=== PATIENT | female | born 1970 | race American Indian/Alaskan Native ===

== ENCOUNTER 2017-10-19 15:52 | Emergency (ER) | payer MEDICAID, OTHER ==
[2017-10-19 16:42] VITALS: RESP 18; TEMP 98.2; O2SAT 100
[2017-10-19] MEDS ORDERED: Famotidine 20mg/50ml 20 MG/50 ML BAG IVPB STA (17:03)
--- NOTE | 2017-10-19 17:07 | ED PDOC ---
Arrival/HPI - General Chief Complaint: Lower Extremity Problem/Injury Time Seen by Provider: 10/19/17 16:37 Historian: Patient - History of Present Illness Narrative History of Present Illness (Text): 10/19/17 17:04 This 47 yo female presents to this ED c/o right knee pain, right lower leg swelling, left wrist pain, and abdominal pain x 1 week. Patient also admits urinary frequency x 1 week. Patient stated she never had this symptoms in the past. Denies nausea, vomiting, diarrhea, rectal bleeding, sob, cp, dizziness, or abnormal gait. Patient noted arthroscopy surgery b/l knees in the past. Time/Duration: Other (see hpi) Context: Home Past Medical History - Provider Review Nursing Documentation Reviewed: Yes - Psychiatric Hx Substance Use: No - Surgical History Other/Comment: Miscarriage x2 Family/Social History - Physician Review Nursing Documentation Reviewed: Yes Family/Social History: Other (noncontributory) Smoking Status: occasional Hx Alcohol Use: Yes Frequency of alcohol use: Socially Hx Substance Use: No Allergies/Home Meds Allergies/Adverse Reactions: Allergies latex Allergy (Verified 10/19/17 16:07) ITCHING Review of Systems - Review of Systems Constitutional: Normal. absent: Fatigue, Weight Change, Fevers Eyes: Normal ENT: Normal Respiratory: Normal. absent: SOB, Cough Cardiovascular: Normal. absent: Chest Pain, Palpitations Gastrointestinal: Abdominal Pain. absent: Constipation, Diarrhea, Nausea, Vomiting Genitourinary Female: Frequency. absent: Dysuria, Hematuria, Vaginal Bleeding, Vaginal Discharge Musculoskeletal: Other (see hpi). absent: Back Pain Skin: Normal. absent: Rash, Abscess, Cellulitis Neurological: Normal. absent: Headache, Dizziness, Focal Weakness, Gait Changes , Speech Changes, Facial Droop, Disequilibrium, Seizure Endocrine: Normal Hemo/Lymphatic: Normal Psychiatric: Normal Physical Exam Vital Signs Temp Pulse Resp BP Pulse Ox 10/19/17 17:40 69 18 122/71 100 10/19/17 16:41 98.2 F 75 18 126/76 100 Temperature: Afebrile Blood Pressure: Normal Pulse: Regular Respiratory Rate: Normal Appearance: Positive for: Well-Appearing, Non-Toxic, Comfortable Pain Distress: None Mental Status: Positive for: Alert and Oriented X 3 - Systems Exam Head: Present: Atraumatic, Normocephalic Pupils: Present: PERRL Extroacular Muscles: Present: EOMI Conjunctiva: Present: Normal Mouth: Present: Moist Mucous Membranes Pharnyx: Present: Normal. No: ERYTHEMA, EXUDATE, TONSILS ENLARGED Nose (External): Present: Atraumatic Nose (Internal): Present: Normal Inspection Neck: Present: Normal Range of Motion, Trachea Midline. No: Meningeal Signs, MIDLINE TENDERNESS, Paraspinal Tenderness, Lymphadenopathy Respiratory/Chest: Present: Clear to Auscultation, Good Air Exchange. No: Respiratory Distress, Accessory Muscle Use Cardiovascular: Present: Regular Rate and Rhythm, Normal S1, S2. No: Murmurs Abdomen: Present: Normal Bowel Sounds. No: Tenderness, Distention, Peritoneal Signs, Rebound, Guarding, Scars Back: Present: Normal Inspection. No: CVA Tenderness Upper Extremity: Present: Normal Inspection, Normal ROM, NORMAL PULSES, Tenderness (mild tenderness distal fibula area. No erythema, or ecchymosis), Neurovascularly Intact, Capillary Refill < 2s. No: Cyanosis, Edema, Swelling, Erythema Lower Extremity: Present: Normal Inspection, Neurovascularly Intact, Capillary Refill < 2 s. No: Edema, Normal ROM (right knee ROM decreased due to pain. No septic knee joint.), Darrian's Sign, Tenderness, Swelling, Erythema, Deformity, Temperature Abnormalties Neurological: Present: GCS=15, CN II-XII Intact, Speech Normal, Motor Func Grossly Intact, Normal Sensory Function, Normal Cerebellar Funct, Gait Normal Skin: Present: Warm, Dry, Normal Color. No: Rashes Psychiatric: Present: Alert, Oriented x 3, Normal Insight, Normal Concentration Medical Decision Making ED Course and Treatment: 10/19/17 18:54 Patient is refusing UA. She stated to Allyssa CHUA, that she is here for wrist and knee pain only. 10/19/17 19:00 Re-evaluation. Discussed results and plan with patient who expresses understanding. All questions answered and there is agreement with the plan to discharge home with instructions. Patient stable for discharge. Return if symptoms persist or worsen. Patient stated that wrist and knee x-rays were no fracture and she was expecting to get a final Dx. of her knee and wrist pain. I told patient that although x-rays did not show fracture or dislocation, they may still be inflamed , causing pain, and she would need further evaluation with her pmd. Patient also stated she does not have abdominal pain at this time. 10/19/17 19:10 Wrist velcro splint was applied by pyrotechnist on left wrist Re-evaluation Time: 18:54 Reassessment Condition: Re-examined, Improved - Lab Interpretations Lab Results: 10/19/17 17:15 10/19/17 17:15 Lab Results 10/19/17 17:15: Sodium 138, Potassium 4.2, Chloride 102, Carbon Dioxide 25, Anion Gap 16, BUN 12, Creatinine 0.7, Est GFR ( Amer) > 60, Est GFR (Non- Af Amer) > 60, Random Glucose 106, Uric Acid 4.4, Calcium 9.4, Total Bilirubin 0.6, AST 33, ALT 34, Alkaline Phosphatase 89, Total Protein 7.6, Albumin 4.4, Globulin 3.2, Albumin/Globulin Ratio 1.3, Lipase 76 10/19/17 17:15: WBC 5.7, RBC 4.29, Hgb 11.6 L, Hct 35.5 L, MCV 82.8, MCH 27.0, MCHC 32.7, RDW 13.8, Plt Count 344, MPV 9.7, Gran % 66.6, Lymph % (Auto) 25.6, Atlantic % (Auto) 6.0, Eos % (Auto) 1.4 L, Baso % (Auto) 0.4, Gran # 3.81, Lymph # 1.5, Atlantic # 0.3, Eos # 0.1, Baso # 0.02 - RAD Interpretation Radiology Orders: 10/19/17 16:56 KNEE W PATELLA RIGHT 3 VIEW [RAD] Stat DUPLEX LOWER EXTRM VEIN RIGHT [US] Stat 10/19/17 16:57 WRIST, LEFT 3 VIEWS [RAD] Stat - Medication Orders Current Medication Orders: Discontinued Medications Famotidine (Pepcid 20mg/50ml Premix) 20 mg in 50 mls @ 100 mls/hr IVPB STAT STA Stop: 10/19/17 17:32 Last Admin: 10/19/17 18:00 Dose: Not Given Non-Admin Reason: Patient Refused Ketorolac Tromethamine (Toradol) 15 mg IVP STAT STA Stop: 10/19/17 17:04 Last Admin: 10/19/17 18:00 Dose: 15 mg MAR Pain Assessment Document 10/19/17 18:00 EQ (Rec: 10/19/17 18:00 EQ [id number]) Pain Reassessment Is this a pain reassessment? No Sleep Is patient sleeping during reassessment? No Presence of Pain Presence of Pain Yes IVP Administration Document 10/19/17 18:00 EQ (Rec: 10/19/17 18:00 EQ [id number]) Charges for Administration # of IVP Administrations 1 Disposition/Present on Arrival - Present on Arrival Any Indicators Present on Arrival: No History of DVT/PE: No History of Uncontrolled Diabetes: No Urinary Catheter: No History of Decub. Ulcer: No History Surgical Site Infection Following: None - Disposition Have Diagnosis and Disposition been Completed?: Yes Diagnosis: Knee pain, Wrist pain Disposition: HOME/ ROUTINE Disposition Time: 18:54 Patient Plan: Discharge Patient Problems: Current Active Problems Problem Status Onset Knee pain Acute Wrist pain Acute Condition: GOOD Discharge Instructions (ExitCare): Knee Pain (ED) Additional Instructions: Call private doctor for follow up visit in 1-2 days. take medication as instructed. Return to emergency if symptoms worsen. Prescriptions: Ibuprofen [Motrin] 600 mg PO Q8 PRN #14 tab PRN Reason: Pain, Severe (8-10) Omeprazole 40 mg PO DAILY #14 capsule.dr Referrals: Terrance Willett MD [Primary Care Provider] - Follow up with primary Forms: [employer] ([employer])
[2017-10-19 17:49] LABS: BASO # 0.02 K/mm3 (0.0-2.0); BASO % 0.4 % (0.0-3.0); EOS # 0.1 (0.0-0.7); EOS % 1.4 % (1.5-5.0); GRAN # 3.81 (1.4-6.5); GRAN % 66.6 % (50.0-68.0); HEMOGLOBIN 11.6 g/dL (12.0-16.0); LYMPH # 1.5 (1.2-3.4); LYMPH % 25.6 % (22.0-35.0); MEAN CELL VOLUME 82.8 fl (80.0-105.0); MEAN CORPUSCULAR HGB CONC 32.7 g/dl (31.0-37.0); MEAN PLATELET VOLUME 9.7 fl (7.0-11.0); MONO # 0.3 (0.1-0.6); RBC 4.29 10^6/uL (3.5-6.1); RED CELL DISTRIBUTION WIDTH 13.8 % (11.5-14.5); WHITE BLOOD COUNT 5.7 10^3/ul (4.5-11.0)
[2017-10-19 18:01] LABS: ALB/GLOB RATIO 1.3 (1.1-1.8); ALBUMIN 4.4 g/dL (3.0-4.8); CALCIUM 9.4 mg/dL (8.4-10.5); GFR AFRICAN-AMERICAN > 60; GFR NON-AFRICAN AMERICAN > 60; LIPASE 76 U/L (23-300); URIC ACID 4.4 mg/dL (2.5-6.2)
[2017-10-19 18:10] LABS: ALT/SGPT 34 U/L (7-56); AST/SGOT 33 U/L (14-36); BLOOD UREA NITROGEN 12 mg/dL (7-21)
[2017-10-19 19:14] VITALS: BP 118/69; PULSE 67
--- NOTE | 2017-10-20 04:00 | US ---
PROCEDURE: Right lower extremity venous US HISTORY: Leg pain and swelling. Evaluate for DVT. PHYSICIAN(S): Jovon Kaur M.D. TECHNIQUE: Duplex sonography and color-flow Doppler with graded compression were used to evaluate the deep venous system of the right lower extremity. The exam is limited by body habitus and edema. FINDINGS: The visualized deep venous system of the right lower extremity is sonographically normal and compressible. Normal waveforms and augmentation are seen. There is no sonographic evidence for deep venous thrombosis in the visualized segments of the right lower extremity. IMPRESSION: 1. No sonographic evidence for deep venous thrombosis in the visualized segments of the right lower extremity.
--- NOTE | 2017-10-20 08:09 | RAD ---
PROCEDURE: Left Wrist Radiographs. HISTORY: pain COMPARISON: None. FINDINGS: BONES: Normal. No fracture. JOINTS: Normal. No dislocation. SOFT TISSUES: Normal. OTHER FINDINGS: None. IMPRESSION: Normal left wrist radiographs.
--- NOTE | 2017-10-20 08:10 | RAD ---
PROCEDURE: Right Knee Radiographs. HISTORY: pain COMPARISON: None. FINDINGS: BONES: Normal. No fracture. JOINTS: Normal. No osteoarthritis. JOINT EFFUSION: None. OTHER FINDINGS: None. IMPRESSION: Normal radiographs of the right knee.
== END 2017-10-19 19:18 | disposition home or self-care (01) ==
LOC: ED 15:52
DX: M25.561 Pain in right knee (principal); M25.532 Pain in left wrist
CPT/HCPCS: 73110; 73562; 80053; 83690; 84550; 85025; 93971; 96374; 99284; J1885